=== PATIENT | male | born 1940 | race Caucasian/White ===

== ENCOUNTER 2019-08-24 02:09 | Inpatient (IN) | payer OTHER ==
[~2019-08-24] VITALS: Ht 170.2 cm; Wt 82.0 kg
[2019-08-24 01:07] VITALS: BP 137/76
--- NOTE | 2019-08-24 01:08 | NUR ---
Direct Admit Note KAYA JASSO admitted to Telemetry/MS unit as a direct admit per MD order. Patient oriented to Amisha Zaldivar, RN primary RN, unit, room, bed, and unit policies regarding patient care and visiting hours. Patient now on continuous telemetry monitoring, tele box # 9 and telemetry reading on arrival to unit is Afib with PVCs. Patient on room air, weighed by bedscale and encouraged to call if they need something. All questions and concerns addressed, patient verbalized understanding. Message left for Dr. Mikhail Pineda notified of patients arrival. Awaiting call back for orders. Fall and safety precautions in place. Call light within reach.
--- NOTE | 2019-08-24 03:00 | NUR ---
AT BEDSIDE currently at bedside, list of home medications brought in. Informed of visiting hours, verbalized understanding and agreement.
--- NOTE | 2019-08-24 03:05 | NUR ---
AMENA SALMON Received call back from Dr. Mikhail Pineda. New orders received, read back and verified. Will input and carry out.
[2019-08-24] MEDS ORDERED: MORPHINE SULF INJ 2 MG/ML SYRINGE 1ML IV PRN (03:30)
[2019-08-24] MEDS ORDERED: NITROGLYCERIN 0.4 MG SL TAB SL PRN (03:30)
[2019-08-24] MEDS ORDERED: ACETAMINOPHEN 325 MG TAB PO PRN (03:30)
[2019-08-24] MEDS ORDERED: PROMETHAZINE HCL 25 MG/ML 1ML IV PRN (03:30)
[2019-08-24] MEDS ORDERED: hydrALAZINE HCL 20 MG/ML VL IV PRN (03:30)
[2019-08-24] MEDS ORDERED: HYDROcodone-ACET 5/325MG TAB PO PRN (03:30)
[2019-08-24] MEDS ORDERED: ENOXAPARIN SOD 100 MG/1 ML SYRINGE SC SCH (04:00)
[2019-08-24 05:00] VITALS: BP 133/79
[2019-08-24] MEDS ORDERED: FAMO-12 PO (05:46)
[2019-08-24] MEDS ORDERED: LOVA40TA72 PO (05:46)
[2019-08-24] MEDS ORDERED: ASPI-404 PO (05:46)
[2019-08-24] MEDS ORDERED: LISI10TA6 PO (05:46)
[2019-08-24] MEDS ORDERED: WARF2TAB49 PO (05:46)
[2019-08-24] MEDS ORDERED: OMEP20TA PO (05:46)
[2019-08-24 06:51] LABS: Basophils # (auto) 0 10 ^3/uL (0-0.2); Basophils % (auto) 0.4 % (0.0-2.0); Eosinophils # (auto) 0 10 ^3/uL (0-0.8); Eosinophils % (auto) 0.2 % (0.0-7.0); Hematocrit 44.2 % (41.0-53.0); Lymphocytes # (auto) 1.6 10 ^3/uL (0.4-5.4); Lymphocytes % (auto) 20.4 % (10.0-50.0); Mean Corpuscular Hemoglobin 32.2 pg (28.0-32.0); Mean Corpuscular Hgb Conc. 33.8 g/dL (32.0-36.0); Mean Corpuscular Volume 95.1 fL (80.0-100.0); Monocytes % (auto) 12.7 % (0.0-12.0); Neutrophils # (auto) 5.2 10 ^3/uL (1.6-8.6); Neutrophils % (auto) 66.3 % (37.0-80.0); Platelet Count (auto) 185 10^3/uL (140-450); Red Blood Cells 4.65 10^6/uL (4.5-5.90); Red Cell Distribution Width 13.3 % (11.8-14.3); White Blood Cell 7.8 10^3/uL (4.4-10.8)
[2019-08-24 06:59] LABS: INR 1.15 (0.9-1.15); Partial Thromboplastin Time 28.8 sec (23.64-32.05)
[2019-08-24 07:07] LABS: Calcium 8.6 mg/dL (8.5-10.1); Potassium 4.2 mmol/L (3.5-5.1)
[2019-08-24 07:09] LABS: BUN/Creatinine Ratio 14.3
--- NOTE | 2019-08-24 08:24 | NUR ---
Opening Shift Note Assumed care of patient, awake and alert. No S/S of distress/SOB or pain. Patient still continue NPO per order, patient tolerated well. Instructed on POC and to call for assist PRN, will continue to monitor for changes Q1hr and PRN.
[2019-08-24 09:51] VITALS: BP 136/68
[2019-08-24] MEDS: LISINOPRIL 10 MG TAB PO SCH ×2 (10:00→14:52)
[2019-08-24] MEDS: ATORVASTATIN 20 MG TAB PO SCH ×2 (10:00→14:52)
[2019-08-24] MEDS: ENOXAPARIN SOD 100 MG/1 ML SYRINGE SC SCH ×2 (10:00→14:53)
[2019-08-24] MEDS: FAMOTIDINE 20 MG TAB PO SCH ×2 (10:00→14:52)
[2019-08-24] MEDS: OMEPRAZOLE 20MG/10ML ORAL SUSP PO SCH (10:00)
[2019-08-24] MEDS ORDERED: PATIENTS OWN MEDICATION PO SCH (10:00)
[2019-08-24] MEDS: ASPirin-EC 81 mg tab PO SCH ×2 (10:00→14:52)
--- NOTE | 2019-08-24 12:00 | NUR ---
Per Dr. Abdon Quintanilla , patient can have AM meds due to there is no procedure schedule yet. Noted and carried it out.
[2019-08-24] MEDS ORDERED: ENOX80IN SC (12:59)
[2019-08-24 13:00] VITALS: BP 134/70
--- NOTE | 2019-08-24 15:21 | NUR ---
assessment re: ss consult fears for safety at home Patient is a 78 year old female who is alert and oriented. Patients cognitive abilities are intact. Prior to admission patient lived home with his Ashlee and functioned with assistance. Per patient he will return home to his prior living arrangements post discharge and family will transport him home. Patient has a rollator for home use. Patients PCP is Dr Palmer. I informed patient of his ss consult that he fears for his safety at home. Patient stated he doesn't know where the nurse got that information. Patient stated that he is well taken care of and lives with his Ashlee. Patient informed me he has no safety issues regarding returning home on discharge. I informed patient he has a right to speak to a perinatal social worker regarding all care. I informed patient he has a right to participate in any and all discharge planning. Patient has a POA and advanced directive. Patient verbalized understanding and agreed to discharge plan. Addendum: 08/24/19 at 1526 by Niki HILTON Amended: Links added.
--- NOTE | 2019-08-24 16:09 | NUR ---
D/C Planning Per SS consult for home health for daily PT/ INR x5 days. Results to be followed by patient's PMD and Coumadin to be adjusted accordingly. Faxed to [facility] medical group and Aide. Per Debbie with [facility] home health they will see patient within 24-48hrs upon d/c day.
--- NOTE | 2019-08-24 17:00 | NUR ---
Dr. Michaud at bedside discussed with patient for LHC and patient agrees.
[2019-08-24 17:07] VITALS: BP 149/80
--- NOTE | 2019-08-24 17:25 | NUR ---
Left a message to Dr. Dwight Coppola regarding Dr. Michaud will do [facility] tomorrow. Awaiting to call back.
--- NOTE | 2019-08-24 19:30 | NUR ---
OPENING NOTE REPORT RECEIVED FROM DAY SHIFT RN PATIENT IS RESTING IN BED. POC DISCUSSED WITH PATIENT AND WHO IS AT BEDSIDE. ALL QUESTIONS ANSWERED. PATIENT EDUCATED TO BE NPO AT MIDNIGHT FOR PENDING HEART CATH IN AM. PATIENT VERBALIZED UNDERSTANDING. PATIENT DENIES ANY PAIN OR DISCOMFORT AT THIS TIME. FALL PRECAUTIONS INITIATED. CALL LIGHT WITHIN REACH. WILL MONITOR Q1H PRN THROUGHOUT SHIFT.
--- NOTE | 2019-08-24 20:20 | NUR ---
MOVED TO ROOM 247A PATIENT MOVED TO ROOM 247A WITH SITTER FOR SAFETY. PATIENT KEEPS HAVING PERIODS OF CONFUSION. PATIENT AWAKES FROM SLEEP, SETS OFF BED ALARM AND IS LOOKING FOR HIS . PATIENT EASILY REORIENTS TO TIME/PLACE/SITUATION. MOVED TO SITTER ROOM FOR SAFETY AND FALL PRECAUTIONS.
[2019-08-24 22:00] VITALS: BP 136/78
[2019-08-25 05:00] VITALS: BP 110/46
--- NOTE | 2019-08-25 05:15 | NUR ---
EKG EKG DONE PER PROTOCOL FOR PRE OP CHECKLIST EKG PLACED IN HARD CHART FOR MD TO SIGN
--- NOTE | 2019-08-25 06:48 | NUR ---
PATIENT TAKEN DOWN TO COMPLEX DIRECTOR WITH HARD CHART PATIENTS AND DAUGHTER ACCOMPANIED STAFF NO DISTRESS AT TIME OF ARRIVAL HAND OFF TO COMPLEX DIRECTOR TAYA ESTRELLA
[2019-08-25 06:58] LABS: Basophils # (auto) 0 10 ^3/uL (0-0.2); Basophils % (auto) 0.5 % (0.0-2.0); Eosinophils # (auto) 0 10 ^3/uL (0-0.8); Eosinophils % (auto) 0.5 % (0.0-7.0); Hematocrit 43.2 % (41.0-53.0); Hemoglobin 14.8 g/dL (13.5-17.5); Lymphocytes # (auto) 1.6 10 ^3/uL (0.4-5.4); Mean Corpuscular Hemoglobin 32.3 pg (28.0-32.0); Mean Corpuscular Hgb Conc. 34.3 g/dL (32.0-36.0); Mean Corpuscular Volume 94.4 fL (80.0-100.0); Monocytes # (auto) 0.9 10 ^3/uL (0-1.3); Monocytes % (auto) 13.4 % (0.0-12.0); Neutrophils # (auto) 4.2 10 ^3/uL (1.6-8.6); Neutrophils % (auto) 61.6 % (37.0-80.0); Nucleated Red Blood Cells % 0.1 %; Platelet Count (auto) 182 10^3/uL (140-450); Red Blood Cells 4.58 10^6/uL (4.5-5.90); Red Cell Distribution Width 13.4 % (11.8-14.3); White Blood Cell 6.8 10^3/uL (4.4-10.8)
--- NOTE | 2019-08-25 07:04 | NUR ---
CLOSING PATIENT DOWN AT DIGITAL LIBRARIAN REPORT GIVEN TO DEON BAIN
[2019-08-25 07:18] LABS: Potassium 4.2 mmol/L (3.5-5.1)
[2019-08-25 07:22] LABS: BUN/Creatinine Ratio 11.7; Calcium 8.9 mg/dL (8.5-10.1)
[2019-08-25] MEDS ORDERED: ANGIOMAX 250 MG VIAL IV ONE (07:27)
[2019-08-25] MEDS ORDERED: IODIXANOL 320MG/ML 100ML BTL IV ONE ×2 (07:28→08:07)
[2019-08-25] MEDS ORDERED: LIDOCAINE 2%HCL (LOCAL ANESTH.) INJ 20ML MDV ONE (07:28)
[2019-08-25] MEDS ORDERED: MIDAZOLAM HCL 1MG/1ML-2 ML VIAL ONE (07:28)
[2019-08-25] MEDS ORDERED: SODIUM CHL 0.9% 50 ML ONE (07:28)
[2019-08-25] MEDS ORDERED: fentaNYL CITRATE 100 MCG/2 ML VL ONE (07:28)
--- NOTE | 2019-08-25 07:30 | NUR ---
Assumed care of patient; patient currently in medical lab scientist and was off the floor when took report.
[2019-08-25] MEDS ORDERED: VERAPAMIL 2.5MG/ML INJ 2ML VIAL IV ONE (07:39)
[2019-08-25] MEDS ORDERED: NITROGLYCERIN 5MG/ML 10ML VIAL IV ONE (07:39)
[2019-08-25] MEDS ORDERED: ASPirin 325 MG TAB ONE (08:43)
[2019-08-25] MEDS ORDERED: TICAGRELOR 90 MG TAB ONE (08:43)
[2019-08-25 09:19] VITALS: BP 110/59
[2019-08-25] MEDS: ASPirin-EC 81 mg tab PO SCH (10:00)
[2019-08-25] MEDS: OMEPRAZOLE 20MG/10ML ORAL SUSP PO SCH (10:00)
[2019-08-25] MEDS: ATORVASTATIN 20 MG TAB PO SCH (10:00)
[2019-08-25] MEDS: FAMOTIDINE 20 MG TAB PO SCH (10:00)
[2019-08-25] MEDS: LISINOPRIL 10 MG TAB PO SCH (10:00)
--- NOTE | 2019-08-25 10:15 | NUR ---
Patient returned back to room via hospital bed from optical lab technician; left vascular access band fastened on wrist, removed 2mL of air, no bleeding noted. Will remove 2 mL, Q 15 minutes, until full 9mL of air removed.
--- NOTE | 2019-08-25 10:30 | NUR ---
Removed 2mL of air from left wrist access band; no bleeding noted.
--- NOTE | 2019-08-25 10:45 | NUR ---
Removed 2 mL of air from left wrist access band; no bleeding noted.
--- NOTE | 2019-08-25 11:00 | NUR ---
Removed 2 mL of air from left wrist access band; no bleeding noted.
--- NOTE | 2019-08-25 11:15 | NUR ---
Removed the last 1 mL of air from left wrist access band; no bleeding noted. Patient resting supine in bed; no report of pain or distress. Instructed on bleeding precautions from cath lab radiological technologist procedure this morning, will continue to monitor Q1 hour. Sitter is at bedside for 24 hour monitoring and patient care.
[2019-08-25 13:00] VITALS: BP 112/62
[2019-08-25 17:00] VITALS: BP 132/68
[2019-08-25] MEDS ORDERED: CLOPIDOGREL 300 MG TAB PO ONE (18:00)
--- NOTE | 2019-08-25 19:25 | NUR ---
Opening Shift Note Assumed care of patient, awake and alert. No S/S of distress/SOB or pain. Safety measures in place bed in lowest position, side rails x2 up, and call light within reach. Patient status post left heart cath, dressing dry and intact. Instructed on POC and to call for assist PRN, will continue to monitor for changes Q1hr and PRN.
[2019-08-25 23:40] VITALS: BP 146/70
[2019-08-26 04:57] VITALS: BP 144/75
[2019-08-26 06:45] LABS: Basophils # (auto) 0.1 10 ^3/uL (0-0.2); Basophils % (auto) 0.7 % (0.0-2.0); Eosinophils # (auto) 0.1 10 ^3/uL (0-0.8); Eosinophils % (auto) 0.9 % (0.0-7.0); Hematocrit 46.6 % (41.0-53.0); Hemoglobin 16.1 g/dL (13.5-17.5); Lymphocytes # (auto) 1.3 10 ^3/uL (0.4-5.4); Lymphocytes % (auto) 18.5 % (10.0-50.0); Mean Corpuscular Hemoglobin 32.9 pg (28.0-32.0); Mean Corpuscular Hgb Conc. 34.6 g/dL (32.0-36.0); Monocytes # (auto) 0.9 10 ^3/uL (0-1.3); Monocytes % (auto) 12.7 % (0.0-12.0); Neutrophils # (auto) 4.7 10 ^3/uL (1.6-8.6); Neutrophils % (auto) 67.2 % (37.0-80.0); Nucleated Red Blood Cells % 0.1 %; Platelet Count (auto) 186 10^3/uL (140-450); Red Blood Cells 4.91 10^6/uL (4.5-5.90); Red Cell Distribution Width 13.5 % (11.8-14.3)
[2019-08-26 07:04] LABS: Potassium 4.2 mmol/L (3.5-5.1)
[2019-08-26 07:08] LABS: BUN/Creatinine Ratio 12.9; Calcium 8.8 mg/dL (8.5-10.1)
--- NOTE | 2019-08-26 07:25 | NUR ---
Opening Shift Note Assumed care of patient, awake and alert. No S/S of distress/SOB or pain. Eating breakfast at bedside, sitting up to chair. at bedside. Instructed on POC and to call for assist PRN, will continue to monitor for changes Q1hr and PRN.
[2019-08-26 08:00] VITALS: BP 117/62
[2019-08-26 08:45] VITALS: BP 117/62
[2019-08-26] MEDS ORDERED: CLOPIDOGREL BISULFATE 75 MG TAB PO SCH (10:00)
[2019-08-26] MEDS: FAMOTIDINE 20 MG TAB PO SCH (10:15)
[2019-08-26] MEDS: LISINOPRIL 10 MG TAB PO SCH (10:16)
[2019-08-26] MEDS: ATORVASTATIN 20 MG TAB PO SCH (10:16)
[2019-08-26] MEDS: ASPirin-EC 81 mg tab PO SCH (10:16)
[2019-08-26] MEDS: OMEPRAZOLE 20MG/10ML ORAL SUSP PO SCH (10:17)
--- NOTE | 2019-08-26 10:43 | NUR ---
MRSA SWAB DONE, SENT TO LAB.
[2019-08-26 13:00] VITALS: BP 118/64
--- NOTE | 2019-08-26 13:00 | NUR ---
DR MENDIETA AT BEDSIDE. RECEIVED VERBAL ORDER TO START COUMADIN TOMORROW BUT STOP ASPIRIN TOMORROW. CONTINUE PLAVIX.
[2019-08-26 16:56] VITALS: BP 107/43
--- NOTE | 2019-08-26 18:00 | NUR ---
CALLED DR. Dwight BECKWITH, CONFIRMING ABOUT THE DISCHARGE ORDER FOR THE PATIENT. WILL WAIT FOR THE ORDER. PATIENT AND MADE AWARE.
--- NOTE | 2019-08-26 19:30 | NUR ---
Opening Shift Note Assumed care of patient, awake and alert. No S/S of distress/SOB or pain. Family currently at the bedside. Safety measures in place bed in lowest position, side rails x2 up, and call light within reach. Instructed on POC and to call for assist PRN, will continue to monitor for changes Q1hr and PRN.
--- NOTE | 2019-08-26 20:05 | NUR ---
Paged Dr. Michaud clarifying that the patient should resume Plavix and Coumadin tomorrow. Inquired if the patient should bridge the medication with Lovenox Dr. Michaud stated no. Will inform Dr. Mikhail Pineda of the Dr. Michaud's orders.
--- NOTE | 2019-08-26 20:31 | NUR ---
Spoke to Dr. Mikhail Pineda regarding discharge orders. Orders received. Patient and family aware. Processing orders now.
--- NOTE | 2019-08-26 21:45 | NUR ---
Patient discharged from unit. Resource RN Shasta educated patient on follow up appointments, and medication management. Patient's IV discontinued and monitor technician removed and returned. Patient escorted off the unit via wheelchair by or assistant Alireza and his .
[2019-08-27] MEDS ORDERED: CLOP75TA28 PO (02:07)
== END 2019-08-26 21:30 | disposition home health service (06) | DRG 247 ==
LOC: TELE-EAST 02:09
PROVIDERS: ADMIT Internal Medicine; ATTEND Internal Medicine
PROC: 027035Z Dilation of Coronary Artery, One Artery with Two Drug-eluting Intraluminal Devices, Percutaneous Approach (ICD-10-PCS; principal; 2019-08-25)
PROC: 4A023N7 Measurement of Cardiac Sampling and Pressure, Left Heart, Percutaneous Approach (ICD-10-PCS; 2019-08-25)
PROC: B211YZZ Fluoroscopy of Multiple Coronary Arteries using Other Contrast (ICD-10-PCS; 2019-08-25)
DX: I24.9 Acute ischemic heart disease, unspecified (principal); I25.10 Atherosclerotic heart disease of native coronary artery without angina pectoris; R79.89 Other specified abnormal findings of blood chemistry; I48.91 Unspecified atrial fibrillation; K21.9 Gastro-esophageal reflux disease without esophagitis; I10 Essential (primary) hypertension; I73.9 Peripheral vascular disease, unspecified; Z79.02 Long term (current) use of antithrombotics/antiplatelets
CPT/HCPCS: 36415; 71045; 80048; 84484; 85025; 85610; 85730; 87081; 92928; 93306; 93458; 99152; 99153; C1874; G0378; J2250; J3490; Q9967

== ENCOUNTER 2019-11-28 09:51 | Emergency (ER) | payer OTHER ==
[~2019-11-28] VITALS: Ht 170.2 cm; Wt 95.3 kg
[~2019-11-28 09:51] MED LIST: CLOP75TA28 PO; FAMO-12 PO; LISI10TA6 PO; LOVA40TA72 PO; OMEP20TA PO; WARF2TAB49 PO
[2019-11-28 10:44] LABS: Basophils # (auto) 0 10 ^3/uL (0-0.2); Basophils % (auto) 0.4 % (0.0-2.0); Eosinophils # (auto) 0 10 ^3/uL (0-0.8); Eosinophils % (auto) 0.3 % (0.0-7.0); Hematocrit 45.9 % (41.0-53.0); Hemoglobin 15.4 g/dL (13.5-17.5); Lymphocytes # (auto) 1.4 10 ^3/uL (0.4-5.4); Lymphocytes % (auto) 19.6 % (10.0-50.0); Mean Corpuscular Hemoglobin 31.9 pg (28.0-32.0); Mean Corpuscular Hgb Conc. 33.6 g/dL (32.0-36.0); Mean Corpuscular Volume 94.9 fL (80.0-100.0); Monocytes # (auto) 0.8 10 ^3/uL (0-1.3); Monocytes % (auto) 11.4 % (0.0-12.0); Neutrophils # (auto) 4.9 10 ^3/uL (1.6-8.6); Neutrophils % (auto) 68.3 % (37.0-80.0); Nucleated Red Blood Cells % 0.1 %; Platelet Count (auto) 188 10^3/uL (140-450); Red Blood Cells 4.83 10^6/uL (4.5-5.90); Red Cell Distribution Width 13.5 % (11.8-14.3); White Blood Cell 7.1 10^3/uL (4.4-10.8)
[2019-11-28 10:57] LABS: Albumin 3.7 g/dL (3.4-5.0); Anion Gap 5 (5-15); Blood Urea Nitrogen 9 mg/dL (7-18); Calcium 8.3 mg/dL (8.5-10.1); Carbon Dioxide 26 mmol/L (21-32); Chloride 106 mmol/L (98-107); Glucose 94 mg/dL (74-106); Sodium 137 mmol/L (136-145)
[2019-11-28 10:58] LABS: INR 2.86 (0.9-1.15); Partial Thromboplastin Time 38.7 sec (23.64-32.05)
[2019-11-28 11:14] LABS: Alanine Aminotransferase 24 U/L (16-61); Alkaline Phosphatase 67 U/L (45-117); Aspartate Aminotransferase 18 U/L (15-37); BUN/Creatinine Ratio 8.7; Bilirubin, Total 0.9 mg/dL (0.2-1.0); GFR African American 90 mL/min; GFR Non-African American 74 mL/min; Total Protein 7.3 g/dL (6.4-8.2)
[2019-11-28] MEDS ORDERED: FUROSEMIDE 20 MG/2 ML VIAL IV ONE (12:15)
[2019-11-28 16:07] VITALS: BP 137/63
== END 2019-11-28 18:05 | disposition home or self-care (01) ==
LOC: ER 09:51
DX: I48.91 Unspecified atrial fibrillation (principal); I11.0 Hypertensive heart disease with heart failure; I50.9 Heart failure, unspecified; E78.5 Hyperlipidemia, unspecified
CPT/HCPCS: 36415; 71045; 80053; 83735; 83880; 84484; 85025; 85610; 85730; 93005; 96374; 99285; J1940

== ENCOUNTER 2020-07-04 10:20 | Emergency (ER) | payer OTHER ==
[~2020-07-04] VITALS: Ht 170.2 cm; Wt 95.3 kg
[~2020-07-04 10:20] MED LIST changes: +LISI-716 PO; -LISI10TA6 PO
[2020-07-04 10:53] LABS: Basophils # (auto) 0 10 ^3/uL (0-0.2); Basophils % (auto) 0.6 % (0.0-2.0); Eosinophils # (auto) 0 10 ^3/uL (0-0.8); Eosinophils % (auto) 0.1 % (0.0-7.0); Hematocrit 45.5 % (41.0-53.0); Hemoglobin 15.5 g/dL (13.5-17.5); Lymphocytes # (auto) 1.4 10 ^3/uL (0.4-5.4); Mean Corpuscular Hemoglobin 32.2 pg (28.0-32.0); Mean Corpuscular Hgb Conc. 34.2 g/dL (32.0-36.0); Mean Corpuscular Volume 94.3 fL (80.0-100.0); Monocytes # (auto) 0.6 10 ^3/uL (0-1.3); Monocytes % (auto) 8.6 % (0.0-12.0); Neutrophils # (auto) 5.1 10 ^3/uL (1.6-8.6); Neutrophils % (auto) 70.7 % (37.0-80.0); Nucleated Red Blood Cells % 0.1 %; Red Blood Cells 4.82 10^6/uL (4.5-5.90); Red Cell Distribution Width 13.2 % (11.8-14.3); White Blood Cell 7.2 10^3/uL (4.4-10.8)
[2020-07-04 11:40] LABS: Albumin 3.8 g/dL (3.4-5.0); Anion Gap 1 (5-15); Blood Urea Nitrogen 18 mg/dL (7-18); Calcium 8.4 mg/dL (8.5-10.1); Carbon Dioxide 30 mmol/L (21-32); Chloride 107 mmol/L (98-107); Glucose 108 mg/dL (74-106); Potassium 4.2 mmol/L (3.5-5.1); Sodium 138 mmol/L (136-145)
[2020-07-04] MEDS ORDERED: CARISOPRODOL 350 MG TAB PO ONE (11:45)
[2020-07-04] MEDS ORDERED: KETOROLAC TROMETH 60MG/2ML VIAL IM ONE (11:45)
[2020-07-04 11:47] LABS: Alanine Aminotransferase 21 U/L (16-61); Alkaline Phosphatase 72 U/L (45-117); Aspartate Aminotransferase 16 U/L (15-37); BUN/Creatinine Ratio 15.5; Bilirubin, Total 1.2 mg/dL (0.2-1.0); GFR African American 78 mL/min; GFR Non-African American 65 mL/min; Total Protein 7.7 g/dL (6.4-8.2)
[2020-07-04 13:51] VITALS: BP 146/64
== END 2020-07-04 14:36 | disposition home or self-care (01) ==
LOC: ER 10:20
DX: M47.22 Other spondylosis with radiculopathy, cervical region (principal); I10 Essential (primary) hypertension; E78.5 Hyperlipidemia, unspecified; Z98.61 Coronary angioplasty status; Z79.899 Other long term (current) drug therapy
CPT/HCPCS: 36415; 71046; 72125; 80053; 84484; 85025; 93005; 96372; 99285; J1885

== ENCOUNTER 2020-07-11 04:40 | Inpatient (IN) | payer OTHER ==
[~2020-07-11] VITALS: Ht 170.2 cm; Wt 98.0 kg
[~2020-07-11 04:40] MED LIST changes: +LISI-648 PO; -LISI-716 PO
[2020-07-11 06:59] LABS: Basophils # (auto) 0 10 ^3/uL (0-0.2); Basophils % (auto) 0.5 % (0.0-2.0); Eosinophils # (auto) 0 10 ^3/uL (0-0.8); Eosinophils % (auto) 0.2 % (0.0-7.0); Hematocrit 40.8 % (41.0-53.0); Hemoglobin 14.1 g/dL (13.5-17.5); Lymphocytes # (auto) 1.2 10 ^3/uL (0.4-5.4); Lymphocytes % (auto) 18.2 % (10.0-50.0); Mean Corpuscular Hemoglobin 32.9 pg (28.0-32.0); Mean Corpuscular Hgb Conc. 34.6 g/dL (32.0-36.0); Mean Corpuscular Volume 95.1 fL (80.0-100.0); Monocytes # (auto) 0.6 10 ^3/uL (0-1.3); Monocytes % (auto) 9.9 % (0.0-12.0); Neutrophils # (auto) 4.6 10 ^3/uL (1.6-8.6); Neutrophils % (auto) 71.2 % (37.0-80.0); Platelet Count (auto) 190 10^3/uL (140-450); Red Blood Cells 4.29 10^6/uL (4.5-5.90); Red Cell Distribution Width 13.5 % (11.8-14.3); White Blood Cell 6.4 10^3/uL (4.4-10.8)
[2020-07-11 07:05] LABS: Chloride 109 mmol/L (98-107); Potassium 4.3 mmol/L (3.5-5.1); Sodium 140 mmol/L (136-145)
[2020-07-11 07:09] LABS: INR 2.38 (0.9-1.15); Partial Thromboplastin Time 37.3 sec (23.0-31.2)
[2020-07-11 07:15] LABS: Alanine Aminotransferase 18 U/L (16-61); Albumin 3.4 g/dL (3.4-5.0); Alkaline Phosphatase 67 U/L (45-117); Aspartate Aminotransferase 10 U/L (15-37); BUN/Creatinine Ratio 12.5; Bilirubin, Total 0.5 mg/dL (0.2-1.0); Blood Urea Nitrogen 12 mg/dL (7-18); Calcium 8.2 mg/dL (8.5-10.1); Carbon Dioxide 27 mmol/L (21-32); GFR African American 97 mL/min; GFR Non-African American 81 mL/min; Glucose 99 mg/dL (74-106); Total Protein 6.7 g/dL (6.4-8.2)
[2020-07-11 07:18] LABS: Anion Gap 4 (5-15)
[2020-07-11] MEDS ORDERED: IOHEXOL 350 MG/ML 100ML IJ ONE (12:36)
[2020-07-11] MEDS ORDERED: NITROGLYCERIN 0.4 MG SL TAB SL PRN (15:15)
[2020-07-11] MEDS ORDERED: ONDANSETRON HCL 4 MG/2 ML VIAL IV PRN (15:15)
[2020-07-11] MEDS ORDERED: HYDROcodone-ACET 5/325MG TAB PO PRN (15:15)
[2020-07-11] MEDS ORDERED: MORPHINE SULF INJ 2 MG/ML SYRINGE 1ML IV PRN ×2 (15:15)
[2020-07-11] MEDS ORDERED: ACETAMINOPHEN 325 MG TAB PO PRN (15:15)
[2020-07-11] MEDS ORDERED: LOSA-69 PO (17:06)
[2020-07-11] MEDS ORDERED: CARI350T22 PO (17:07)
[2020-07-11] MEDS ORDERED: AMOX500C2 PO (17:08)
[2020-07-11 17:48] VITALS: BP 140/93
[2020-07-11] MEDS ORDERED: PANTOPRAZOLE 40 MG TAB PO SCH (18:00)
[2020-07-11 22:00] VITALS: BP 145/103
[2020-07-11] MEDS: LOSARTAN POTASSIUM 50 MG TAB PO SCH (22:00)
[2020-07-11] MEDS ORDERED: PRAVASTATIN SODIUM 20 MG TAB PO SCH (22:00)
[2020-07-12 05:00] VITALS: BP 136/83
[2020-07-12 07:12] LABS: Basophils # (auto) 0 10 ^3/uL (0-0.2); Basophils % (auto) 0.4 % (0.0-2.0); Eosinophils # (auto) 0 10 ^3/uL (0-0.8); Eosinophils % (auto) 0.1 % (0.0-7.0); Hematocrit 41.1 % (41.0-53.0); Hemoglobin 14.2 g/dL (13.5-17.5); Lymphocytes # (auto) 1.1 10 ^3/uL (0.4-5.4); Lymphocytes % (auto) 15.7 % (10.0-50.0); Mean Corpuscular Hemoglobin 32.6 pg (28.0-32.0); Mean Corpuscular Hgb Conc. 34.6 g/dL (32.0-36.0); Mean Corpuscular Volume 94.2 fL (80.0-100.0); Monocytes # (auto) 0.6 10 ^3/uL (0-1.3); Monocytes % (auto) 9.4 % (0.0-12.0); Neutrophils # (auto) 5.1 10 ^3/uL (1.6-8.6); Neutrophils % (auto) 74.4 % (37.0-80.0); Platelet Count (auto) 197 10^3/uL (140-450); Red Blood Cells 4.36 10^6/uL (4.5-5.90); Red Cell Distribution Width 13.3 % (11.8-14.3); White Blood Cell 6.8 10^3/uL (4.4-10.8)
[2020-07-12 07:19] LABS: INR 1.94 (0.9-1.15)
[2020-07-12 07:28] LABS: Calcium 8.6 mg/dL (8.5-10.1); Magnesium 2.3 mg/dL (1.6-2.6); Potassium 3.9 mmol/L (3.5-5.1)
[2020-07-12 07:29] LABS: BUN/Creatinine Ratio 13.2
[2020-07-12 09:08] VITALS: BP 106/68
[2020-07-12] MEDS ORDERED: LISINOPRIL 10 MG TAB PO SCH (10:00)
[2020-07-12] MEDS ORDERED: CLOPIDOGREL BISULFATE 75 MG TAB PO SCH (10:00)
[2020-07-12] MEDS ORDERED: FAMOTIDINE 20 MG TAB PO SCH (10:00)
[2020-07-12] MEDS: LOSARTAN POTASSIUM 50 MG TAB PO SCH (10:23)
[2020-07-12 14:25] VITALS: BP 106/68
[2020-07-12] MEDS ORDERED: WARFARIN SODIUM 2 MG TAB PO ONE (17:00)
== END 2020-07-12 15:30 | disposition home health service (06) | DRG 204 ==
LOC: ER 04:40 → TELE 04:41 → TELE-CENTR 17:42
PROVIDERS: ADMIT Internal Medicine; ATTEND Internal Medicine
DX: R06.02 Shortness of breath (principal); D68.9 Coagulation defect, unspecified; I48.20 Chronic atrial fibrillation, unspecified; R07.9 Chest pain, unspecified; E78.5 Hyperlipidemia, unspecified; I11.0 Hypertensive heart disease with heart failure; Z20.822 Contact with and (suspected) exposure to COVID-19; I50.9 Heart failure, unspecified; I25.10 Atherosclerotic heart disease of native coronary artery without angina pectoris; I25.2 Old myocardial infarction; Z80.0 Family history of malignant neoplasm of digestive organs; Z82.3 Family history of stroke; Z83.3 Family history of diabetes mellitus; Z98.61 Coronary angioplasty status
CPT/HCPCS: 36415; 71045; 71275; 80048; 80053; 83735; 83880; 84443; 84484; 85025; 85379; 85610; 85730; 87426; 93005; G0378

== ENCOUNTER 2021-03-01 23:36 | Emergency (ER) | payer OTHER ==
[~2021-03-01] VITALS: Ht 170.2 cm; Wt 90.7 kg
[~2021-03-01 23:36] MED LIST changes: +CARI350T22 PO; -LISI-648 PO; +LOSA-69 PO; -OMEP20TA PO
[2021-03-02 00:35] VITALS: BP 136/73
== END 2021-03-02 03:19 | disposition home or self-care (01) ==
LOC: ER 23:36
DX: I48.91 Unspecified atrial fibrillation (principal); I10 Essential (primary) hypertension; E78.00 Pure hypercholesterolemia, unspecified; Z79.899 Other long term (current) drug therapy; Z79.84 Long term (current) use of oral hypoglycemic drugs; Z98.890 Other specified postprocedural states

== ENCOUNTER 2021-03-13 07:50 | Emergency (ER) | payer OTHER ==
[~2021-03-13] VITALS: Ht 170.2 cm; Wt 86.2 kg
[2021-03-13 08:57] LABS: Basophils # (auto) 0 10 ^3/uL (0-0.2); Basophils % (auto) 0.6 % (0.0-2.0); Eosinophils # (auto) 0 10 ^3/uL (0-0.8); Eosinophils % (auto) 0.6 % (0.0-7.0); Hematocrit 43.7 % (41.0-53.0); Hemoglobin 14.6 g/dL (13.5-17.5); Lymphocytes # (auto) 1.2 10 ^3/uL (0.4-5.4); Lymphocytes % (auto) 16.9 % (10.0-50.0); Mean Corpuscular Hemoglobin 31.9 pg (28.0-32.0); Mean Corpuscular Hgb Conc. 33.4 g/dL (32.0-36.0); Mean Corpuscular Volume 95.6 fL (80.0-100.0); Monocytes # (auto) 0.6 10 ^3/uL (0-1.3); Monocytes % (auto) 8.9 % (0.0-12.0); Neutrophils # (auto) 5.2 10 ^3/uL (1.6-8.6); Nucleated Red Blood Cells % 0.2 %; Red Blood Cells 4.58 10^6/uL (4.5-5.90); Red Cell Distribution Width 13.8 % (11.8-14.3); White Blood Cell 7.1 10^3/uL (4.4-10.8)
[2021-03-13 09:02] LABS: INR 3.03 (0.9-1.15); Partial Thromboplastin Time 42.4 sec (23.6-33.0)
[2021-03-13 09:07] LABS: Albumin 3.5 g/dL (3.4-5.0); Calcium 8.6 mg/dL (8.5-10.1); Potassium 4.4 mmol/L (3.5-5.1)
[2021-03-13 09:12] LABS: Bilirubin, Total 0.6 mg/dL (0.2-1.0)
[2021-03-13 10:31] VITALS: BP 144/72
== END 2021-03-13 10:44 | disposition home or self-care (01) ==
LOC: ER 07:50
DX: T81.89XA Other complications of procedures, not elsewhere classified, initial encounter (principal); T45.515A Adverse effect of anticoagulants, initial encounter; I10 Essential (primary) hypertension; I48.91 Unspecified atrial fibrillation; E78.5 Hyperlipidemia, unspecified; Z79.01 Long term (current) use of anticoagulants; Z79.899 Other long term (current) drug therapy; Y92.89 Other specified places as the place of occurrence of the external cause
CPT/HCPCS: 36415; 80053; 85025; 85610; 85730

== ENCOUNTER 2021-07-12 12:25 | Emergency (ER) | payer OTHER ==
[~2021-07-12] VITALS: Ht 170.2 cm; Wt 86.2 kg
[2021-07-12 12:49] VITALS: BP 133/73
[2021-07-12] MEDS ORDERED: ACETAMINOPHEN 500 MG TAB PO ONE ×2 (14:15)
[2021-07-12] MEDS ORDERED: ACET-1080 PO (14:17)
== END 2021-07-12 14:27 | disposition home or self-care (01) ==
LOC: ER 12:25
DX: R51.9 Headache, unspecified (principal); E11.9 Type 2 diabetes mellitus without complications; I10 Essential (primary) hypertension
CPT/HCPCS: 70450

== ENCOUNTER 2021-07-20 08:49 | Emergency (ER) | payer OTHER ==
[~2021-07-20] VITALS: Ht 165.1 cm; Wt 77.1 kg
[~2021-07-20 08:49] MED LIST changes: +ACET-1080 PO
[2021-07-20 09:16] LABS: Basophils # (auto) 0 10 ^3/uL (0-0.2); Basophils % (auto) 0.6 % (0.0-2.0); Eosinophils # (auto) 0 10 ^3/uL (0-0.8); Eosinophils % (auto) 0.1 % (0.0-7.0); Hematocrit 46.1 % (41.0-53.0); Hemoglobin 15.1 g/dL (13.5-17.5); Lymphocytes # (auto) 1.7 10 ^3/uL (0.4-5.4); Lymphocytes % (auto) 23.5 % (10.0-50.0); Mean Corpuscular Hemoglobin 30.9 pg (28.0-32.0); Mean Corpuscular Hgb Conc. 32.8 g/dL (32.0-36.0); Mean Corpuscular Volume 94.4 fL (80.0-100.0); Monocytes # (auto) 0.7 10 ^3/uL (0-1.3); Monocytes % (auto) 9.2 % (0.0-12.0); Neutrophils # (auto) 4.7 10 ^3/uL (1.6-8.6); Neutrophils % (auto) 66.6 % (37.0-80.0); Nucleated Red Blood Cells % 0.1 %; Red Blood Cells 4.88 10^6/uL (4.5-5.90); Red Cell Distribution Width 13.6 % (11.8-14.3); White Blood Cell 7.1 10^3/uL (4.4-10.8)
[2021-07-20 09:35] LABS: Albumin 3.9 g/dL (3.4-5.0); Potassium 4.7 mmol/L (3.5-5.1)
[2021-07-20 09:39] LABS: BUN/Creatinine Ratio 12.6; Bilirubin, Total 0.7 mg/dL (0.2-1.0); Total Protein 7.4 g/dL (6.4-8.2)
[2021-07-20] MEDS ORDERED: IOHEXOL 350 MG/ML 100ML IJ ONE (12:15)
[2021-07-20 12:57] LABS: Partial Thromboplastin Time 49.5 sec (23.6-33.0)
[2021-07-20 13:04] LABS: INR 4.73 (0.9-1.15)
[2021-07-20 15:38] LABS: Urine WBC None Seen /hpf (0 - 3)
[2021-07-20 15:51] LABS: Urine Bacteria NONE SEEN /hpf (None Seen); Urine Blood Negative /uL (Negative); Urine Mucus FEW (None Seen); Urine Specific Gravity 1.012 (1.001-1.035)
[2021-07-20 17:06] VITALS: BP 165/72
== END 2021-07-20 17:30 | disposition home or self-care (01) ==
LOC: ER 08:49
DX: R06.02 Shortness of breath (principal); I11.0 Hypertensive heart disease with heart failure; I50.9 Heart failure, unspecified; I48.91 Unspecified atrial fibrillation; E78.5 Hyperlipidemia, unspecified; Z20.822 Contact with and (suspected) exposure to COVID-19
CPT/HCPCS: 36415; 71045; 71275; 80053; 81001; 83880; 84484; 85025; 85610; 85730; 87426; 93005; 99285; Q9967

== ENCOUNTER 2022-02-16 10:50 | Emergency (ER) | payer OTHER ==
[~2022-02-16] VITALS: Ht 170.2 cm; Wt 210.0 kg
[2022-02-16 13:48] VITALS: BP 121/77
== END 2022-02-16 14:44 | disposition home or self-care (01) ==
LOC: ER 10:50
DX: R22.0 Localized swelling, mass and lump, head (principal); I11.0 Hypertensive heart disease with heart failure; I50.9 Heart failure, unspecified; E78.5 Hyperlipidemia, unspecified; Z85.828 Personal history of other malignant neoplasm of skin

== ENCOUNTER 2022-05-07 06:51 | Inpatient (IN) | payer OTHER ==
[~2022-05-07] VITALS: Ht 170.2 cm; Wt 80.0 kg
[2022-05-07 07:39] LABS: Basophils # (auto) 0.1 10 ^3/uL (0-0.2); Basophils % (auto) 1.2 % (0.0-2.0); Eosinophils # (auto) 0 10 ^3/uL (0-0.8); Eosinophils % (auto) 0.5 % (0.0-7.0); Hematocrit 42.4 % (41.0-53.0); Hemoglobin 13.9 g/dL (13.5-17.5); Lymphocytes # (auto) 1.4 10 ^3/uL (0.4-5.4); Lymphocytes % (auto) 21.6 % (10.0-50.0); Mean Corpuscular Hemoglobin 31.7 pg (28.0-32.0); Mean Corpuscular Hgb Conc. 32.9 g/dL (32.0-36.0); Mean Corpuscular Volume 96.4 fL (80.0-100.0); Monocytes # (auto) 0.7 10 ^3/uL (0-1.3); Monocytes % (auto) 10.3 % (0.0-12.0); Neutrophils # (auto) 4.4 10 ^3/uL (1.6-8.6); Neutrophils % (auto) 66.4 % (37.0-80.0); Nucleated Red Blood Cells % 0.2 %; Red Blood Cells 4.39 10^6/uL (4.5-5.90); White Blood Cell 6.6 10^3/uL (4.4-10.8)
[2022-05-07 07:55] LABS: Albumin 3.4 g/dL (3.4-5.0); Calcium 8.9 mg/dL (8.5-10.1); Potassium 4.3 mmol/L (3.5-5.1)
[2022-05-07 07:57] LABS: BUN/Creatinine Ratio 14.7
[2022-05-07 07:58] LABS: Bilirubin, Total 0.8 mg/dL (0.2-1.0); Total Protein 6.6 g/dL (6.4-8.2)
[2022-05-07] MEDS ORDERED: HYDROcodone-ACET 5/325MG TAB PO PRN (19:30)
[2022-05-07] MEDS ORDERED: ONDANSETRON HCL 4 MG/2 ML VIAL IV PRN (19:30)
[2022-05-07 20:17] LABS: INR 3.88 (0.9-1.15)
[2022-05-07] MEDS ORDERED: LOSARTAN POTASSIUM 50 MG TAB PO SCH (22:00)
[2022-05-07] MEDS ORDERED: CARISOPRODOL 350 MG TAB PO SCH (22:00)
[2022-05-08] MEDS ORDERED: TEMAZEPAM 15 MG CAP PO ONE (02:45)
[2022-05-08 03:52] LABS: Urine Bacteria NONE SEEN /hpf (None Seen); Urine Blood Negative /uL (Negative); Urine Mucus FEW (None Seen); Urine Specific Gravity 1.023 (1.001-1.035); Urine WBC 2 /hpf (0 - 3)
[2022-05-08 03:56] VITALS: BP 125/70
[2022-05-08 05:00] VITALS: BP 145/65
[2022-05-08 06:48] LABS: Basophils # (auto) 0 10 ^3/uL (0-0.2); Basophils % (auto) 0.6 % (0.0-2.0); Eosinophils # (auto) 0 10 ^3/uL (0-0.8); Eosinophils % (auto) 0.3 % (0.0-7.0); Hematocrit 39.2 % (41.0-53.0); Hemoglobin 13.2 g/dL (13.5-17.5); Lymphocytes # (auto) 1.1 10 ^3/uL (0.4-5.4); Lymphocytes % (auto) 15.8 % (10.0-50.0); Mean Corpuscular Hgb Conc. 33.6 g/dL (32.0-36.0); Mean Corpuscular Volume 95.2 fL (80.0-100.0); Monocytes # (auto) 0.7 10 ^3/uL (0-1.3); Monocytes % (auto) 10.1 % (0.0-12.0); Neutrophils # (auto) 5.3 10 ^3/uL (1.6-8.6); Neutrophils % (auto) 73.2 % (37.0-80.0); Nucleated Red Blood Cells % 0.1 %; Red Blood Cells 4.12 10^6/uL (4.5-5.90); Red Cell Distribution Width 13.8 % (11.8-14.3); White Blood Cell 7.2 10^3/uL (4.4-10.8)
[2022-05-08 06:50] LABS: INR 3.6 (0.9-1.15)
[2022-05-08 07:06] LABS: Potassium 4.3 mmol/L (3.5-5.1)
[2022-05-08 07:22] LABS: Albumin 3.2 g/dL (3.4-5.0); Calcium 8.7 mg/dL (8.5-10.1)
[2022-05-08 07:25] LABS: Total Protein 6.1 g/dL (6.4-8.2)
[2022-05-08 09:00] VITALS: BP 144/70
[2022-05-08] MEDS ORDERED: FAMOTIDINE 20 MG TAB PO SCH (10:00)
[2022-05-08] MEDS ORDERED: POLYETHYLENE GLYCOL 17 GM PWDR PO SCH (10:00)
[2022-05-08] MEDS ORDERED: ATORVASTATIN 20 MG TAB PO SCH (10:00)
[2022-05-08 13:00] VITALS: BP 130/63
[2022-05-08 14:32] LABS: Cholesterol 105 mg/dL (< 200); HDL Cholesterol 45 mg/dL (40-59); LDL Cholesterol 67 mg/dL (< 100); Triglycerides 74 mg/dL (< 150)
[2022-05-08 14:59] VITALS: BP 130/63
[2022-05-08] MEDS ORDERED: WARFARIN SODIUM 2 MG TAB PO SCH (18:00)
[2022-05-09] MEDS ORDERED: ASPirin 81 mg TAB PO SCH (10:00)
== END 2022-05-08 16:00 | disposition home or self-care (01) | DRG 556 ==
LOC: ER 06:51 → EDUNIT# 06:51 → EDBD 06:51 → TELE 19:33 → TELE-WESTW 23:10
PROVIDERS: ADMIT Nurse Practitioner Family; ATTEND Nurse Practitioner Family
DX: M25.512 Pain in left shoulder (principal); G20 Parkinson's disease; Z20.822 Contact with and (suspected) exposure to COVID-19; E78.5 Hyperlipidemia, unspecified; I11.0 Hypertensive heart disease with heart failure; I25.10 Atherosclerotic heart disease of native coronary artery without angina pectoris; I48.0 Paroxysmal atrial fibrillation; R79.1 Abnormal coagulation profile; W18.39XA Other fall on same level, initial encounter; S09.90XA Unspecified injury of head, initial encounter; I50.9 Heart failure, unspecified; Z79.01 Long term (current) use of anticoagulants; Z80.0 Family history of malignant neoplasm of digestive organs; Z83.3 Family history of diabetes mellitus; Z82.3 Family history of stroke; Z85.828 Personal history of other malignant neoplasm of skin; Z95.828 Presence of other vascular implants and grafts; Z98.61 Coronary angioplasty status; Y93.89 Activity, other specified; Y92.89 Other specified places as the place of occurrence of the external cause; Y99.8 Other external cause status
CPT/HCPCS: 36415; 70450; 71250; 72192; 73030; 80053; 80061; 81001; 83036; 83735; 84443; 84484; 85025; 85379; 85610; 87426; 93005; 93306; 97110; 97116; 97162; 97530; G0378

== ENCOUNTER 2023-02-23 19:10 | Inpatient (IN) | payer OTHER ==
[~2023-02-23] VITALS: Ht 182.9 cm; Wt 72.7 kg
[~2023-02-23 19:10] MED LIST changes: -CARI350T22 PO; +CARI350T27 PO; -LOSA-69 PO; +LOSA50TA46 PO; -WARF2TAB49 PO; +WARF4TAB69 PO
[2023-02-23 19:50] VITALS: PULSE 78; RESP 17; O2SAT 99
[2023-02-23 21:34] LABS: Basophils # (auto) 0 10 ^3/uL (0-0.2); Basophils % (auto) 0.3 % (0.0-2.0); Eosinophils # (auto) 0 10 ^3/uL (0-0.8); Eosinophils % (auto) 0.1 % (0.0-7.0); Hematocrit 41.4 % (41.0-53.0); Lymphocytes # (auto) 2.3 10 ^3/uL (0.4-5.4); Lymphocytes % (auto) 22.9 % (10.0-50.0); Mean Corpuscular Hemoglobin 32.3 pg (28.0-32.0); Mean Corpuscular Hgb Conc. 33.8 g/dL (32.0-36.0); Mean Corpuscular Volume 95.7 fL (80.0-100.0); Monocytes # (auto) 1.4 10 ^3/uL (0-1.3); Monocytes % (auto) 13.7 % (0.0-12.0); Neutrophils # (auto) 6.3 10 ^3/uL (1.6-8.6); Nucleated Red Blood Cells % 0.1 %; Red Blood Cells 4.33 10^6/uL (4.5-5.90); Red Cell Distribution Width 13.8 % (11.8-14.3); White Blood Cell 10.1 10^3/uL (4.4-10.8)
[2023-02-23 21:50] LABS: Alanine Aminotransferase 13 U/L (7-40); Albumin 4.2 g/dL (3.2-4.8); Alkaline Phosphatase 67 U/L (46-116); Aspartate Aminotransferase 17 U/L (13-40); Blood Alcohol < 3.0 mg/dL (<10); Blood Urea Nitrogen 15 mg/dL (9-23); Calcium 9.3 mg/dL (8.7-10.4); Chloride 107 mmol/L (98-107); Glucose 100 mg/dL (74-106); INR 1.19 (0.9-1.15); Lactic Acid w/Reflex 2.3 mmol/L (0.4-2.0); Magnesium 1.9 mg/dL (1.6-2.6); Partial Thromboplastin Time 32.2 SEC (24.5-34.5); Potassium 3.7 mmol/L (3.5-5.1); Prothrombin Time 12.4 sec (9.3-11.8); Sodium 139 mmol/L (136-145)
[2023-02-23 21:51] LABS: Bilirubin, Total 1.2 mg/dL (0.2-1.0)
[2023-02-24 02:03] LABS: Urine Bacteria NONE SEEN /hpf (None Seen); Urine Blood 3+ /uL (Negative); Urine Clarity Clear (Clear); Urine Color Yellow (Yellow); Urine Hyaline Cast FEW /lpf (0 - 2); Urine Mucus FEW (None Seen); Urine Protein, UAD TRACE (Negative); Urine Specific Gravity 1.023 (1.001-1.035); Urine Urobilinogen Normal (Negative); Urine WBC 3 /hpf (0 - 3); Urine pH 5.5 (5.0-8.0)
[2023-02-24 02:56] LABS: Amphetamine Screen, Urine Neg (NEGATIVE); Barbiturate Scree,Urine Neg (NEGATIVE); Benzodiazephine Screen, Urine Neg (NEGATIVE)
[2023-02-24 02:57] LABS: Cannabinoid Screen, Urine Neg (NEGATIVE); Cocaine Screen, Urine Neg (NEGATIVE); Opiate Scree,Urine Neg (NEGATIVE); Phencyclidine Screen, Urine Neg (NEGATIVE)
[2023-02-24] MEDS ORDERED: NITROGLYCERIN 0.4 MG SL TAB SL PRN (06:30)
[2023-02-24] MEDS ORDERED: SODIUM CHLORIDE 0.9% 500 ML IV ONE (06:30)
[2023-02-24] MEDS ORDERED: ACETAMINOPHEN 325 MG TAB PO PRN (06:30)
[2023-02-24] MEDS ORDERED: ONDANSETRON HCL 4 MG/2 ML VIAL IV PRN (06:30)
[2023-02-24] MEDS ORDERED: DOCUSATE SOD 100 MG CAP PO PRN (06:30)
[2023-02-24] MEDS ORDERED: MORPHINE SULFATE INJ 2 MG/ml SYRG IV PRN (06:30)
[2023-02-24 08:14] VITALS: PULSE 57; RESP 17; O2SAT 99
[2023-02-24] MEDS ORDERED: ENOXAPARIN SOD 40 MG/0.4 ML SYRINGE SC SCH (10:00)
[2023-02-24] MEDS: CYANOCOBALAMIN 500 MCG TAB PO SCH (11:51)
[2023-02-24 19:50] VITALS: PULSE 74; RESP 20; O2SAT 96
[2023-02-24 22:00] VITALS: BP 137/54; PULSE 79; RESP 18; TEMP 99.7; O2SAT 96
[2023-02-24] MEDS: ENOXAPARIN SOD 100 MG/1 ML SYRINGE SC SCH (23:12)
[2023-02-25] VITALS (7 sets, daily range): BP systolic 127–153; BP diastolic 51–72; PULSE 64–92; RESP 16–20; TEMP 97.9–99.6; O2SAT 96–98
[2023-02-25 05:47] LABS: Basophils # (auto) 0 10 ^3/uL (0-0.2); Basophils % (auto) 0.3 % (0.0-2.0); Eosinophils # (auto) 0 10 ^3/uL (0-0.8); Hematocrit 39.3 % (41.0-53.0); Hemoglobin 13.6 g/dL (13.5-17.5); Lymphocytes # (auto) 0.7 10 ^3/uL (0.4-5.4); Mean Corpuscular Hgb Conc. 34.5 g/dL (32.0-36.0); Mean Corpuscular Volume 95.7 fL (80.0-100.0); Monocytes % (auto) 9.8 % (0.0-12.0); Neutrophils # (auto) 8.3 10 ^3/uL (1.6-8.6); Neutrophils % (auto) 82.9 % (37.0-80.0); Red Blood Cells 4.11 10^6/uL (4.5-5.90); Red Cell Distribution Width 13.6 % (11.8-14.3)
[2023-02-25 06:03] LABS: Anion Gap 9.2 (5-15); Carbon Dioxide 22.8 mmol/L (20-30); Chloride 107 mmol/L (98-107); Potassium 3.6 mmol/L (3.5-5.1); Sodium 139 mmol/L (136-145)
[2023-02-25 06:05] LABS: Calcium 8.6 mg/dL (8.7-10.4)
[2023-02-25 06:09] LABS: BUN/Creatinine Ratio 17.6 (10.0-20.0); Blood Urea Nitrogen 16 mg/dL (9-23); Glucose 89 mg/dL (74-106)
[2023-02-25 06:31] LABS: RPR Non Reactive (Non Reactive)
[2023-02-25] MEDS: CYANOCOBALAMIN 500 MCG TAB PO SCH (10:27)
[2023-02-25] MEDS: ENOXAPARIN SOD 100 MG/1 ML SYRINGE SC SCH (10:27)
[2023-02-25] MEDS: APIXABAN 2.5 MG TAB PO SCH (21:17)
[2023-02-25] MEDS ORDERED: ENOXAPARIN SOD 80 MG/0.8ML SYRINGE SC SCH (22:00)
[2023-02-26 05:00] VITALS: BP 139/56; PULSE 53; RESP 15; TEMP 98.9; O2SAT 95
[2023-02-26 06:50] LABS: Basophils # (auto) 0 10 ^3/uL (0-0.2); Basophils % (auto) 0.4 % (0.0-2.0); Eosinophils # (auto) 0 10 ^3/uL (0-0.8); Eosinophils % (auto) 0.6 % (0.0-7.0); Hematocrit 39.2 % (41.0-53.0); Hemoglobin 13.5 g/dL (13.5-17.5); Lymphocytes # (auto) 1.4 10 ^3/uL (0.4-5.4); Lymphocytes % (auto) 17.8 % (10.0-50.0); Mean Corpuscular Hgb Conc. 34.5 g/dL (32.0-36.0); Mean Corpuscular Volume 95.6 fL (80.0-100.0); Monocytes # (auto) 1.1 10 ^3/uL (0-1.3); Monocytes % (auto) 14.7 % (0.0-12.0); Neutrophils # (auto) 5.2 10 ^3/uL (1.6-8.6); Neutrophils % (auto) 66.5 % (37.0-80.0); Red Cell Distribution Width 13.7 % (11.8-14.3); White Blood Cell 7.8 10^3/uL (4.4-10.8)
[2023-02-26 06:55] LABS: Chloride 107 mmol/L (98-107); Potassium 3.6 mmol/L (3.5-5.1); Sodium 140 mmol/L (136-145)
[2023-02-26 06:56] LABS: Calcium 8.5 mg/dL (8.5-10.1)
[2023-02-26 07:01] LABS: BUN/Creatinine Ratio 18.4 (10.0-20.0); Blood Urea Nitrogen 16 mg/dL (9-23); Glucose 84 mg/dL (74-106)
[2023-02-26 07:08] LABS: Anion Gap 6 (5-15); Carbon Dioxide 27 mmol/L (20-30)
[2023-02-26 08:00] VITALS: PULSE 40
[2023-02-26 08:40] VITALS: BP 127/57; PULSE 43; RESP 18; TEMP 98.6; O2SAT 96
[2023-02-26] MEDS: CYANOCOBALAMIN 500 MCG TAB PO SCH (09:59)
[2023-02-26] MEDS: APIXABAN 2.5 MG TAB PO SCH (10:00)
[2023-02-26 12:15] VITALS: BP 110/61; PULSE 69; RESP 20; TEMP 98.5; O2SAT 97
[2023-02-26 16:35] VITALS: BP 137/67; PULSE 65; RESP 18; TEMP 97.8; O2SAT 97
[2023-02-26] MEDS ORDERED: MIDODRINE HCL 10 MG TAB PO ONE (17:30)
[2023-03-02 03:06] LABS: Methylmalonic Acid 117 nmol/L (0-378)
== END 2023-02-26 18:33 | disposition home health service (06) | DRG 71 ==
LOC: EDBD 19:10 → ER 19:17 → TELE 02-24 06:30 → TELE-E-ADS 02-24 22:30
PROVIDERS: ADMIT Nurse Practitioner Family; ATTEND Internal Medicine
DX: G93.41 Metabolic encephalopathy (principal); I48.20 Chronic atrial fibrillation, unspecified; G20 Parkinson's disease; I25.10 Atherosclerotic heart disease of native coronary artery without angina pectoris; I11.0 Hypertensive heart disease with heart failure; I50.9 Heart failure, unspecified; E53.8 Deficiency of other specified B group vitamins; G30.9 Alzheimer's disease, unspecified; F02.80 Dementia in other diseases classified elsewhere, unspecified severity, without behavioral disturbance, psychotic disturbance, mood disturbance, and anxiety; R79.1 Abnormal coagulation profile; Z95.5 Presence of coronary angioplasty implant and graft; Z86.73 Personal history of transient ischemic attack (TIA), and cerebral infarction without residual deficits; I25.2 Old myocardial infarction; Z79.01 Long term (current) use of anticoagulants; Z83.3 Family history of diabetes mellitus; Z80.0 Family history of malignant neoplasm of digestive organs
CPT/HCPCS: 36415; 70450; 70551; 71045; 80048; 80053; 80307; 80320; 81001; 82140; 82607; 82962; 83605; 83735; 84484; 85025; 85610; 85730; 86592; 87040; 93005; 93306; 97110; 97116; 97163; 97530; G0378

== ENCOUNTER 2023-05-05 10:07 | Inpatient (IN) | payer OTHER ==
[~2023-05-05] VITALS: Ht 177.8 cm; Wt 77.0 kg
[~2023-05-05 10:07] MED LIST changes: -WARF4TAB69 PO
[2023-05-05 11:26] LABS: Basophils # (auto) 0 10 ^3/uL (0-0.2); Basophils % (auto) 0.3 % (0.0-2.0); Eosinophils # (auto) 0 10 ^3/uL (0-0.8); Hematocrit 41.9 % (41.0-53.0); Lymphocytes # (auto) 0.1 10 ^3/uL (0.4-5.4); Lymphocytes % (auto) 2.2 % (10.0-50.0); Mean Corpuscular Hemoglobin 32.2 pg (28.0-32.0); Mean Corpuscular Hgb Conc. 33.5 g/dL (32.0-36.0); Mean Corpuscular Volume 96.1 fL (80.0-100.0); Monocytes # (auto) 0.7 10 ^3/uL (0-1.3); Neutrophils % (auto) 87.5 % (37.0-80.0); Nucleated Red Blood Cells % 0.1 %; Red Blood Cells 4.36 10^6/uL (4.5-5.90); Red Cell Distribution Width 13.4 % (11.8-14.3); White Blood Cell 6.9 10^3/uL (4.4-10.8)
[2023-05-05 11:43] LABS: Alanine Aminotransferase 16 U/L (7-40); Albumin 4.2 g/dL (3.2-4.8); Alkaline Phosphatase 79 U/L (46-116); Anion Gap 6 (5-15); Aspartate Aminotransferase 18 U/L (13-40); Blood Urea Nitrogen 11 mg/dL (9-23); Calcium 8.9 mg/dL (8.5-10.1); Carbon Dioxide 26 mmol/L (20-30); Chloride 107 mmol/L (98-107); Glucose 103 mg/dL (74-106); Potassium 4.1 mmol/L (3.5-5.1); Sodium 139 mmol/L (136-145)
[2023-05-05 11:44] LABS: Bilirubin, Total 1.1 mg/dL (0.2-1.0); Total Protein 6.7 g/dL (5.7-8.2)
[2023-05-05 11:47] LABS: INR 1.14 (0.9-1.15); Partial Thromboplastin Time 27.7 SEC (24.5-34.5); Prothrombin Time 11.9 sec (9.3-11.8)
[2023-05-05 11:51] VITALS: PULSE 90; RESP 20; O2SAT 100
[2023-05-05] MEDS ORDERED: ACETAMINOPHEN 650 mg PER 20.3 mL UD PO ONE (12:15)
[2023-05-05] MEDS ORDERED: IOHEXOL 350 MG/ML 100ML IJ ONE (12:32)
[2023-05-05 13:19] LABS: Lipase 26 U/L (12-53)
[2023-05-05] MEDS ORDERED: FUROSEMIDE 20 MG/2 ML VIAL IV ONE (13:45)
[2023-05-05] MEDS ORDERED: LIDOCAINE 2% JELLY 11ml (GLYDO) ONE (13:56)
[2023-05-05] MEDS ORDERED: PIPERACILLIN-TAZOB 3.375GM 100 ML IV ONE (14:30)
[2023-05-05 14:49] LABS: Urine Bacteria NONE SEEN /hpf (None Seen); Urine Blood Negative /uL (Negative); Urine Clarity Clear (Clear); Urine Color Yellow (Yellow); Urine Protein, UAD Negative (Negative); Urine Specific Gravity 1.018 (1.001-1.035); Urine WBC <1 /hpf (0 - 3); Urine pH 7.5 (5.0-8.0)
[2023-05-05] MEDS ORDERED: NITROGLYCERIN 0.4 MG SL TAB SL PRN (18:15)
[2023-05-05] MEDS ORDERED: MORPHINE SULFATE INJ 2 MG/ml SYRG IV PRN ×2 (18:15)
[2023-05-05] MEDS ORDERED: DOCUSATE SOD 100 MG CAP PO PRN (18:15)
[2023-05-05] MEDS ORDERED: ONDANSETRON HCL 4 MG/2 ML VIAL IV PRN (18:15)
[2023-05-05] MEDS ORDERED: HYDROcodone-ACET 5/325MG TAB PO PRN (18:15)
[2023-05-05] MEDS ORDERED: ACETAMINOPHEN 325 MG TAB PO PRN (18:15)
[2023-05-05 19:26] LABS: Rapid Influenza A Negative (Negative); Rapid Influenza B Negative (Negative)
[2023-05-05 19:30] LABS: COVID19 ANTIGEN SOFIA FIA POSITIVE (NEGATIVE)
[2023-05-06] MEDS: FUROSEMIDE 40 MG/4 ML VIAL IV SCH ×2 (06:15→17:46)
[2023-05-06 06:57] LABS: Alanine Aminotransferase 21 U/L (7-40); Albumin 3.8 g/dL (3.2-4.8); Alkaline Phosphatase 66 U/L (46-116); Anion Gap 10 (5-15); Aspartate Aminotransferase 38 U/L (13-40); BUN/Creatinine Ratio 13.4 (10.0-20.0); Blood Urea Nitrogen 13 mg/dL (9-23); Calcium 8.4 mg/dL (8.7-10.4); Carbon Dioxide 24 mmol/L (20-30); Chloride 103 mmol/L (98-107); Glucose 115 mg/dL (74-106); Potassium 3.8 mmol/L (3.5-5.1); Sodium 137 mmol/L (136-145)
[2023-05-06 06:58] LABS: Basophils # (auto) 0 10 ^3/uL (0-0.2); Basophils % (auto) 0.3 % (0.0-2.0); Bilirubin, Total 0.8 mg/dL (0.2-1.0); Eosinophils # (auto) 0 10 ^3/uL (0-0.8); Hemoglobin 13.8 g/dL (13.5-17.5); Lymphocytes # (auto) 0.2 10 ^3/uL (0.4-5.4); Lymphocytes % (auto) 4.4 % (10.0-50.0); Mean Corpuscular Hemoglobin 32.1 pg (28.0-32.0); Mean Corpuscular Hgb Conc. 33.6 g/dL (32.0-36.0); Mean Corpuscular Volume 95.7 fL (80.0-100.0); Monocytes # (auto) 0.6 10 ^3/uL (0-1.3); Monocytes % (auto) 13.8 % (0.0-12.0); Neutrophils # (auto) 3.6 10 ^3/uL (1.6-8.6); Neutrophils % (auto) 81.5 % (37.0-80.0); Nucleated Red Blood Cells % 0.1 %; Red Blood Cells 4.29 10^6/uL (4.5-5.90); Red Cell Distribution Width 13.5 % (11.8-14.3); Total Protein 6.3 g/dL (5.7-8.2); White Blood Cell 4.4 10^3/uL (4.4-10.8)
[2023-05-06 08:00] VITALS: PULSE 87; RESP 24; O2SAT 95
[2023-05-06] MEDS ORDERED: LORazepam 2MG/ML-1ML VIAL IV PRN (10:30)
[2023-05-06] MEDS ORDERED: CYANOCOBALAMIN (B-12) 1000 MCG/1 ML VIAL IM ONE (10:30)
[2023-05-06] MEDS: ENOXAPARIN SOD 40 MG/0.4 ML SYRINGE SC SCH (10:58)
[2023-05-06] MEDS ORDERED: GABA-1308 PO (15:03)
[2023-05-06] MEDS: cefTRIAXone 1GM/50ML D5W 50 ML IV SCH (15:03)
[2023-05-06] MEDS ORDERED: MIDO5TAB22 PO (15:03)
[2023-05-06] MEDS: AZITHROMYCIN 500MG/ 250ML 250 ML IV SCH (15:03)
[2023-05-06 20:05] VITALS: PULSE 74; RESP 21; O2SAT 97
[2023-05-06 23:38] VITALS: BP 144/80; PULSE 60; RESP 18; TEMP 99.5
[2023-05-06] MEDS ORDERED: APIX2.5T PO (23:44)
[2023-05-07 05:00] VITALS: BP 113/62; PULSE 74; RESP 20; TEMP 98.3; O2SAT 97
[2023-05-07] MEDS: FUROSEMIDE 40 MG/4 ML VIAL IV SCH ×2 (05:43→17:51)
[2023-05-07 08:00] VITALS: PULSE 74
[2023-05-07 08:06] LABS: RPR Non Reactive (Non Reactive)
[2023-05-07 09:00] VITALS: BP 106/63; PULSE 69; RESP 20; O2SAT 93
[2023-05-07] MEDS: cefTRIAXone 1GM/50ML D5W 50 ML IV SCH (09:11)
[2023-05-07] MEDS: ENOXAPARIN SOD 40 MG/0.4 ML SYRINGE SC SCH (09:43)
[2023-05-07] MEDS: CYANOCOBALAMIN 500 MCG TAB PO SCH (09:43)
[2023-05-07] MEDS: AZITHROMYCIN 500MG/ 250ML 250 ML IV SCH (09:44)
[2023-05-07 13:00] VITALS: BP 94/58; PULSE 87; RESP 19; O2SAT 97
[2023-05-07 17:00] VITALS: BP 112/56; PULSE 72; RESP 19; O2SAT 97
[2023-05-07 20:00] VITALS: PULSE 70
[2023-05-07] MEDS: APIXABAN 2.5 MG TAB PO SCH (21:08)
[2023-05-07] MEDS: ATORVASTATIN 20 MG TAB PO SCH (21:08)
[2023-05-08] VITALS (7 sets, daily range): BP systolic 95–126; BP diastolic 52–69; PULSE 51–88; RESP 16–18; TEMP 98.6; O2SAT 93–98
[2023-05-08] MEDS: FUROSEMIDE 40 MG/4 ML VIAL IV SCH ×2 (06:24→17:33)
[2023-05-08] MEDS: cefTRIAXone 1GM/50ML D5W 50 ML IV SCH (08:57)
[2023-05-08] MEDS: CLOPIDOGREL BISULFATE 75 MG TAB PO SCH (09:48)
[2023-05-08] MEDS: APIXABAN 2.5 MG TAB PO SCH ×2 (09:48→22:06)
[2023-05-08] MEDS: CYANOCOBALAMIN 500 MCG TAB PO SCH (09:48)
[2023-05-08] MEDS: AZITHROMYCIN 500MG/ 250ML 250 ML IV SCH (09:49)
[2023-05-08] MEDS: ATORVASTATIN 20 MG TAB PO SCH (22:06)
[2023-05-09 04:29] VITALS: BP 119/50; PULSE 72; RESP 20; TEMP 98.4; O2SAT 92
[2023-05-09] MEDS: FUROSEMIDE 40 MG/4 ML VIAL IV SCH ×2 (06:25→17:39)
[2023-05-09 08:00] VITALS: PULSE 88
[2023-05-09] MEDS: cefTRIAXone 1GM/50ML D5W 50 ML IV SCH (08:42)
[2023-05-09 09:00] VITALS: BP 97/53; PULSE 71; RESP 19; TEMP 98.6; O2SAT 95
[2023-05-09] MEDS: CLOPIDOGREL BISULFATE 75 MG TAB PO SCH (10:08)
[2023-05-09] MEDS: AZITHROMYCIN 500MG/ 250ML 250 ML IV SCH (10:08)
[2023-05-09] MEDS: CYANOCOBALAMIN 500 MCG TAB PO SCH (10:08)
[2023-05-09] MEDS: APIXABAN 2.5 MG TAB PO SCH (10:08)
[2023-05-09 13:00] VITALS: BP 113/55; PULSE 64; RESP 17; TEMP 98.8; O2SAT 95
[2023-05-09 16:40] VITALS: BP 119/50; TEMP 36.9
[2023-05-09 17:00] VITALS: BP 115/99; PULSE 67; RESP 18; TEMP 98.4; O2SAT 92
== END 2023-05-09 20:35 | DRG 177 ==
LOC: ER 10:07 → EDBD 10:07 → TELE 18:11 → TELE-WESTW 05-06 22:57
PROVIDERS: ADMIT Internal Medicine; ATTEND Internal Medicine
DX: U07.1 COVID-19 (principal); G93.41 Metabolic encephalopathy; J12.82 Pneumonia due to coronavirus disease 2019; I48.92 Unspecified atrial flutter; I50.9 Heart failure, unspecified; I25.10 Atherosclerotic heart disease of native coronary artery without angina pectoris; I11.0 Hypertensive heart disease with heart failure; E78.5 Hyperlipidemia, unspecified; F02.80 Dementia in other diseases classified elsewhere, unspecified severity, without behavioral disturbance, psychotic disturbance, mood disturbance, and anxiety; F17.200 Nicotine dependence, unspecified, uncomplicated; G20.A1 Parkinson's disease without dyskinesia, without mention of fluctuations; G30.9 Alzheimer's disease, unspecified; H54.7 Unspecified visual loss; W01.0XXA Fall on same level from slipping, tripping and stumbling without subsequent striking against object, initial encounter; I27.20 Pulmonary hypertension, unspecified; I48.0 Paroxysmal atrial fibrillation; Z78.9 Other specified health status; Z79.01 Long term (current) use of anticoagulants; Z79.899 Other long term (current) drug therapy; Z80.0 Family history of malignant neoplasm of digestive organs; Z82.3 Family history of stroke; Z82.0 Family history of epilepsy and other diseases of the nervous system; Z83.3 Family history of diabetes mellitus; Z86.73 Personal history of transient ischemic attack (TIA), and cerebral infarction without residual deficits; Z98.61 Coronary angioplasty status; Y93.89 Activity, other specified; Y92.091 Bathroom in other non-institutional residence as the place of occurrence of the external cause; Y99.8 Other external cause status
CPT/HCPCS: 36415; 70450; 71250; 71275; 72125; 73700; 74176; 80053; 81001; 82607; 82746; 83605; 83690; 83880; 84443; 84484; 85025; 85379; 85610; 85730; 86592; 87040; 87426; 87804; 93005; 93886; 95819; 96365; 96375; 97110; 97116; 97163; 97530; G0378; J0696; J2543